=== PATIENT | male | born 1950 | race Caucasian/White ===

== ENCOUNTER 2019-09-09 09:57 | Outpatient (CLI) | payer MEDICARE ==
[~2019-09-09] VITALS: Ht 177.8 cm; Wt 124.7 kg
[2019-09-09 10:40] LABS: ABG BASE EXCESS -0.6 mmol/L (-2.0-3.0); ABG HCO3 22.6 mmol/L (22.0-26.0); ABG OXYGEN SATURATION 96.8 % (95-98); ABG PCO2 (T) 33.4 mmHg (35.0-45.0); ABG PH (T) 7.448 (7.350-7.450); ABG PO2 (T) 85.3 mmHg (83-108); ALLEN'S TEST Positive; FCOHb 0.9 % (0.5-1.5); FMetHb 0.2 % (0.3-1.12); FO2Hb 95.7 % (94-100); TOTAL HEMOGLOBIN 16.4 G/dl (14.0-17.9)
[2019-09-09] MEDS ORDERED: albuterol 2.5 MG/3 ML nebule NEB ONE (10:50)
== END 2019-09-09 23:59 | disposition home or self-care (01) ==
LOC: RT 09:57
PROVIDERS: ATTEND Internal Medicine Cardiovascular Disease
DX: J98.8 Other specified respiratory disorders (principal); J98.4 Other disorders of lung; J45.991 Cough variant asthma
CPT/HCPCS: 36600; 82803; 85018; 94060; 94727; 94729; 94760